=== PATIENT | male | born 1975 | race Caucasian/White ===

== ENCOUNTER 2020-03-05 06:35 | Inpatient (IN) ==
[2020-03-05] MEDS ORDERED: levoFLOXacin 500 MG/100 ML 500 MG/100 ML BAG IVPB ONE (06:54)
[2020-03-05] MEDS ORDERED: Ringers Solution, Lactated 1,000 ML IVC SCH (07:00)
[2020-03-05] MEDS ORDERED: *HR* OxyCODONE Immed Rel 5 MG TABLET PO PRN (07:15)
[2020-03-05] MEDS ORDERED: Promethazine 6.25 MG in Water for inj. (sterile) 20 ML IVPB PRN (07:15)
[2020-03-05] MEDS ORDERED: Ondansetron 4 MG/2 ML VIAL IVP PRN ×2 (07:15→13:15)
[2020-03-05] MEDS ORDERED: Acetaminophen IV 1,000 MG/100 ML INFUS..BTL IVPB ONE (07:17)
[2020-03-05] MEDS ORDERED: Heparin 1,000 UNITS/500 mL 500 ML ONE (07:20)
[2020-03-05] MEDS ORDERED: *HR* Rocuronium Bromide 50 MG/5 ML VIAL ONE (08:26)
[2020-03-05] MEDS ORDERED: EPHEDrine 50 MG/ML VIAL ONE (08:33)
[2020-03-05] MEDS ORDERED: *HR* HYDROMORPHONE 2 MG/ML VIAL ONE (09:04)
[2020-03-05] MEDS ORDERED: Sugammadex Sodium 200 MG/2 ML VIAL IV ONE (10:50)
[2020-03-05] MEDS: *HR* HYDROmorphone PF 0.5 MG/0.5 ML SYRINGE IVP PRN ×3 (11:44→11:58)
[2020-03-05] MEDS ORDERED: *HR* Labetalol 20 MG/4 ML SYRINGE IVP ONE ×2 (12:09→12:11)
[2020-03-05] MEDS ORDERED: Naloxone 0.4 MG/ML INJ IVP PRN (13:15)
[2020-03-05] MEDS ORDERED: Acetaminophen 325 MG TABLET PO PRN (13:15)
[2020-03-05] MEDS: 0.9 % Sodium Chloride 1,000 ML IVC SCH ×2 (13:54→21:54)
[2020-03-05] MEDS: *HR* Heparin 5,000 UNIT/ML VIAL SQ SCH (18:05)
[2020-03-06 02:39] LABS: Basophils % 0.1 %; Hematocrit 42.4 % (37.5-50.1); Hemoglobin 14.1 g/dL (12.9-16.9); Immature Granulocytes % 0.2 % (0-4); Lymphocytes % 8.2 %; Mean Corpuscular HGB Conc 33.3 g/dL (31.6-35.5); Mean Corpuscular Hemoglobin 30.1 pg (28.0-33.3); Mean Corpuscular Volume 90.6 fL (83.0-100.0); Mean Platelet Volume 9.3 fL (9.4-12.4); Monocytes # 1.2 K/mcL (0.0-1.3); Monocytes % 9.4 %; Neutrophils # 10.3 K/mcL (1.6-8.9); Platelet Count 279 K/mcL (140-400); Red Blood Count 4.68 M/mcL (4.19-5.50); Red Cell Distribution Width 12.1 % (11.5-14.5); Segmented Neutrophils % 82.1 %; White Blood Count 12.5 K/mcL (4.3-11.1)
[2020-03-06 02:53] LABS: BUN/Creatinine Ratio 11 (6-26); Blood Urea Nitrogen 13 mg/dL (6-20); Calcium 8.7 mg/dL (8.6-10.3); Carbon Dioxide 25 mEq/L (23-29); Chloride 102 mEq/L (98-107); Glucose 110 mg/dL (70-105); Osmolality,Calculated 281 (280-300); Potassium 4.3 mEq/L (3.5-5.1); Sodium 135 mEq/L (136-145); eGFR For African Americans > 60 (> 60); eGFR For Non-African Americans > 60 (> 60)
[2020-03-06] MEDS: *HR* Heparin 5,000 UNIT/ML VIAL SQ SCH ×2 (05:20→16:44)
[2020-03-06] MEDS: 0.9 % Sodium Chloride 1,000 ML IVC SCH (05:20)
[2020-03-07] MEDS: *HR* OxyCODONE/APAP 5/325 TABLET PO PRN ×3 (00:50→15:37)
[2020-03-07 02:40] LABS: Hematocrit 44.2 % (37.5-50.1); Hemoglobin 14.8 g/dL (12.9-16.9); Mean Corpuscular HGB Conc 33.5 g/dL (31.6-35.5); Mean Corpuscular Hemoglobin 30.3 pg (28.0-33.3); Mean Corpuscular Volume 90.6 fL (83.0-100.0); Mean Platelet Volume 9.1 fL (9.4-12.4); Platelet Count 278 K/mcL (140-400); Red Blood Count 4.88 M/mcL (4.19-5.50); Red Cell Distribution Width 12.3 % (11.5-14.5); White Blood Count 9.6 K/mcL (4.3-11.1)
[2020-03-07] MEDS: *HR* Heparin 5,000 UNIT/ML VIAL SQ SCH (05:03)
[2020-03-07] MEDS ORDERED: Bisacodyl 10 MG RECTAL SUPPOSITORY RC SCH (10:45)
[2020-03-07 11:46] VITALS: BP 150/104
== END 2020-03-07 15:41 | disposition home or self-care (01) | DRG 657 ==
LOC: SAMDAY 06:35 → 2ANU 13:23
PROVIDERS: ADMIT Urology; ATTEND Urology